=== PATIENT | female | born 1985 | race Caucasian/White ===

== ENCOUNTER 2016-11-25 20:30 | Emergency (ER) | payer OTHER ==
[2016-11-25 21:33] VITALS: BP 151/84
[2016-11-25] MEDS ORDERED: Ketorolac 60 MG/2 ML SDV IM ONE (22:16)
[2016-11-25] MEDS ORDERED: Cyclobenzaprine 10 MG Tab PO ONE (22:16)
--- NOTE | 2016-11-25 22:22 | EDM.PDOC ---
ED HPI GENERAL MEDICAL PROBLEM - General Chief Complaint: Upper Extremity Injury/Pain Stated Complaint: INJURED LT SHOULDER Time Seen by Provider: 11/25/16 21:46 Source of Information: Reports: Patient History Limitations: Reports: No Limitations - History of Present Illness INITIAL COMMENTS - FREE TEXT/NARRATIVE: 31 yo female presents to ER with left shoulder pain. She woke on Wed with left shoulder pain. She was seen at [facility] orthopedic and tx physical therapy. She denies injury or change in activity to the shoulder. She does have hx of chronic shoulder pain but it has never been so severe. generally healthy, will be in the area for 6 more days then will return home. Left Shoulder Pain Score (Numeric/FACES): 10 - Related Data Allergies Allergy/AdvReac Type Severity Reaction Status Date / Time ibuprofen [From Advil] Allergy Hives Verified 11/25/16 21:40 Home Meds: Home Meds Levothyroxine 200 mcg PO ACBREAKFAST 11/25/16 [History] Past Medical History [employer] History: Reports: , Spontaneous Musculoskeletal History: Reports: Fracture Other Musculoskeletal History: fx finger fx L2 Endocrine/Metabolic History: Reports: Hypothyroidism Social & Family History - Tobacco Use Smoking Status *Q: Never Smoker Second Hand Smoke Exposure: No - Caffeine Use Caffeine Use: Reports: Coffee, Soda - Alcohol Use Days Per Week of Alcohol Use: 0 - Recreational Drug Use Recreational Drug Use: No Review of Systems - Review of Systems Review Of Systems: See Below Constitutional: Denies: Chills, Fever Respiratory: Denies: Shortness of Breath, Wheezing Cardiovascular: Denies: Chest Pain Musculoskeletal: Reports: Arm Pain, Joint Pain ED EXAM, GENERAL - Physical Exam Exam: See Below Exam Limited By: No Limitations General Appearance: Alert, WD/WN, Mild Distress Neck: Supple, Limited Range of Motion (pain), Tender Lateral (left) Respiratory/Chest: No Respiratory Distress, Lungs Clear, Normal Breath Sounds. No: Crackles, Rhonchi, Wheezing Cardiovascular: Regular Rate, Rhythm, No Murmur Back Exam: Paraspinal Tenderness (left cervical and left thoratic) Extremities: Limited Range of Motion (very limited by pain), Other (left shoulder tender anterior at bicep incertion, full posterior tenderness). No: Joint Swelling Neurological: Alert, Oriented Psychiatric: Normal Affect, Normal Mood Skin Exam: Warm, Dry, Intact Course - Vital Signs Last Recorded V/S: Last Vital Signs Temp 36.3 C 11/25/16 21:45 Pulse 66 11/25/16 21:45 Resp 20 11/25/16 21:45 BP 151/84 H 11/25/16 21:45 Pulse Ox 100 11/25/16 21:45 - Orders/Labs/Meds Orders: Active Orders 24 hr Category Date Time Status Shoulder Comp Lt [CR] Stat Exams 11/25/16 22:16 Taken DME for Discharge [COMM] Stat Oth 11/25/16 22:56 Ordered Meds: Medications Discontinued Medications Generic Name Dose Route Start Last Admin Trade Name Tom PRN Reason Stop Dose Admin Cyclobenzaprine HCl 10 mg 11/25/16 22:16 11/25/16 22:41 Flexeril PO 11/25/16 22:17 10 mg ONETIME ONE Administration Ketorolac Tromethamine 60 mg 11/25/16 22:16 11/25/16 22:39 Toradol IM 11/25/16 22:17 60 mg ONETIME ONE Administration - Re-Assessments/Exams Free Text/Narrative Re-Assessment/Exam: 11/25/16 22:58 11/25/16 23:01 Departure - Departure Time of Disposition: 23:01 Disposition: Home, Self-Care 01 Condition: Good Clinical Impression: Frozen shoulder syndrome Qualifiers: Laterality: left Qualified Code(s): 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 - Discharge Information Forms: ED Department Discharge Additional Instructions: remove sling and do range of motion exercises at least 4 times per day naproxen 500 mg 1-2 tablets every 12 hours for pain Cyclobenzaprine up to 3 times daily for muscle spasms Percocet for break through pain follow-up with [facility] orthopedic for physical therapy - My Orders Last 24 Hours: My Active Orders 11/25/16 22:16 Shoulder Comp Lt [CR] Stat 11/25/16 22:56 DME for Discharge [COMM] Stat - Assessment/Plan Last 24 Hours: My Active Orders 11/25/16 22:16 Shoulder Comp Lt [CR] Stat 11/25/16 22:56 DME for Discharge [COMM] Stat
--- NOTE | 2016-11-26 13:17 | CR ---
Shoulder Comp Lt HISTORY: pain FINDINGS: There is calcification between the head of the humerus and the acromion process which may represent calcific tendinopathy in the rotator cuff. Osteochondral loose bodies in the joint capsule could possibly look similar but are felt to be less likely. There is no fracture or dislocation abo ut the left shoulder. AC joint is not widened. Bony architecture is preserved. Left upper chest is c lear. IMPRESSION: Possible calcific tendinopathy changes in the rotator cuff cephalad to the head of the h [place].
== END 2016-11-25 23:15 | disposition home or self-care (01) ==
LOC: JP.ED 20:30
DX: M75.02 Adhesive capsulitis of left shoulder (principal); E03.9 Hypothyroidism, unspecified; Z88.6 Allergy status to analgesic agent; X58.XXXA Exposure to other specified factors, initial encounter
CPT/HCPCS: 73030; 96372; 99284; A9270; J1885